=== PATIENT | male | born 1970 | race Asian ===

== ENCOUNTER 2017-12-24 15:55 | Emergency (ER) | payer OTHER ==
[2017-12-24 16:32] VITALS: BP 143/108; PULSE 72; TEMP 98.8; BMI 23.7
--- NOTE | 2017-12-24 16:39 | PDOC ---
History of Present Illness <Nadir Trevino - Last Filed: 12/24/17 19:20> - General History Source: Patient Exam Limitations: No Limitations <Ghassan Chan - Last Filed: 12/24/17 19:51> - General Chief Complaint: Chest Pain Stated Complaint: LEFT CHEST PAIN X 1 DAY AGO Time Seen by Provider: 12/24/17 16:00 - History of Present Illness Initial Comments: 12/24/17 19:46 The patient is a 47 year old male, with a significant past medical history of hyperlipidemia, who presents to the emergency department with chest pain since 07:00 this morning. The patient reports his pain began in the left shoulder after shoveling snow Wednesday night. Patient reports taking Aleeve for his symptoms with relief. Yesterday patient reports his left shoulder pain return along with scapular pain. Today, he reports he developed left sided chest pain. He describes his chest pain as a pitching sensation at the left nipple, nonradiating in nature. Patient states his symptoms come every 45 minutes and last 1-2 seconds. He rates his pain a 6/10. Patient reports associated belching sensation, which relieves his pain. He denies any associated diaphoresis, palpitations, or lower extremity edema.There is no worsening of the symptoms with exertion. Today, patient reports visiting his PCP, where he had an ECG done , which was negative. Patient denies any recent fever, chills, cough, sore throat. He denies any focal weakness, fatigue, numbness, tingling, or neck pain. He denies any abdominal pain, nausea, or vomiting. He denies any recent travel or sick contacts. Allergies: NKDA Past Surgical History: Lymph node removal. Social History: Former smoker. No ETOH or recreational drug use PCP: Dr. Tam (Ghassan Chan) Past History - Past Medical History COPD: No Hypercholesterolemia: Yes - Suicide/Smoking/Psychosocial Hx Smoking History: Former smoker Have you smoked in the past 12 months: No If you are a former smoker, when did you quit?: 2003 Information on smoking cessation initiated: No Hx Alcohol Use: Yes (RARE) Drug/Substance Use Hx: No Substance Use Type: None <Nadir Trevino - Last Filed: 12/24/17 19:20> <Ghassan Chan - Last Filed: 12/24/17 19:51> - Past Medical History Allergies/Adverse Reactions: Allergies Allergy/AdvReac Type Severity Reaction Status Date / Time No Known Allergies Allergy Verified 12/24/17 16:11 Home Medications: Ambulatory Orders Animas-3/Dha/Epa/Fish Oil [Fish Oil 500 mg Softgel] 1 each PO DAILY 12/24/17 Pravastatin Sodium [Pravachol (Nf)] 20 mg PO HS 12/24/17 Review of Systems <Nadri Trevino - Last Filed: 12/24/17 19:20> - Review of Systems Able to Perform ROS?: Yes <Ghassan Cahn - Last Filed: 12/24/17 19:51> - Review of Systems Comments:: 12/24/17 19:50 CONSTITUTIONAL: No reported: Fever, Chills, Diaphoresis, Generalized Weakness, Malaise, Loss of Appetite HEENT: No reported: Rhinorrhea, Nasal Congestion, Throat Pain, Throat Swelling, Difficulty Swallowing, Mouth Swelling, Ear Pain, Eye Pain, Visual Changes CARDIOVASCULAR: Reported: left sided chest pain No reported: Syncope, Palpitations, Irregular Heart Rate, Lightheadedness, Peripheral Edema RESPIRATORY: No reported: Cough, Shortness of Breath, SOB with Exertion, Orthopnea, Wheezing , Stridor, Hemoptysis GASTROINTESTINAL: Reported belching No reported: Abdominal pain, Abdominal Distension, Nausea, Vomiting, Diarrhea, Constipation, Melena, Hematochezia MUSCULOSKELETAL: Reported: left shoulder/scapular pain No reported: Joint Swelling, Neck Pain SKIN: No reported: Rash, Itching, Pallor NEUROLOGIC: No reported: Headache, Focal Weakness, Paresthesias, Vertigo, Lightheadedness, Unsteady Gait, Seizure, Mental Status Changes, Incontinence (Ghassan Chan) *Physical Exam <Nadir Trevino - Last Filed: 12/24/17 19:20> <Ghassan Chan - Last Filed: 12/24/17 19:51> - Vital Signs Last Vital Signs Temp Pulse Resp BP Pulse Ox 98.8 F 72 15 143/108 99 12/24/17 15:57 12/24/17 15:57 12/24/17 15:57 12/24/17 15:57 12/24/17 15:57 - Physical Exam Comments: 12/24/17 19:51 GENERAL: The patient is awake, alert, and fully oriented, Nontoxic - in no acute distress. HEAD: Normocephalic, atraumatic. EYES: extraocular movements intact, sclera anicteric, conjunctiva clear. ENT: Normal voice, Moist mucous membranes. NECK: Normal range of motion, supple LUNGS: Breath sounds equal, clear to auscultation bilaterally. No wheezes, no rhonchi, no rales. HEART: Regular rate and rhythm, without murmur, rub or gallop. No reproducible chest wall tenderness ABDOMEN: Soft, nontender No guarding, no rebound.No CVA tenderness BACK: Mild tenderness in the left cervical/paraspinal, EXTREMITIES: Normal range of motion, no edema. No clubbing or cyanosis. No cords , erythema, or tenderness. NEUROLOGICAL: No facial asymmetry, Normal speech, PSYCH: Normal mood, normal affect. SKIN: Warm, Dry, normal turgor. No rash (Ghassan Chan) Heart Score/ECG Review <Nadir Trevino - Last Filed: 12/24/17 19:20> <Ghassan Chan - Last Filed: 12/24/17 19:51> - ECG Impressions Comment:: 12/24/17 17:31 Twelve-lead EKG was performed and reviewed by me. There is normal sinus rhythm with a normal rate. Rate of 73 The axis is normal. The intervals are normal. There is normal R wave progression There are no ST or T wave abnormalities. Impression: Normal twelve-lead EKG (Nadir Trevino) ED Treatment Course - LABORATORY CBC & Chemistry Diagram: 12/24/17 17:40 12/24/17 17:40 <Nadir Trevino - Last Filed: 12/24/17 19:20> - LABORATORY CBC & Chemistry Diagram: 12/24/17 17:40 12/24/17 17:40 <Ghassan Chan - Last Filed: 12/24/17 19:51> - ADDITIONAL ORDERS Additional order review: Laboratory Results 12/24/17 12/24/17 17:40 17:40 Sodium 134 L Potassium 4.0 Chloride 101 Carbon Dioxide 24 Anion Gap 9 BUN 15 Creatinine 1.1 Creat Clearance w eGFR > 60 Random Glucose 99 Calcium 10.0 Total Bilirubin 1.2 H AST 33 ALT 51 H Alkaline Phosphatase 76 Creatine Kinase 622 H Creatine Kinase Index 0.6 CK-MB (CK-2) 3.9 Troponin I < 0.03 Total Protein 8.1 Albumin 5.2 H 12/24/17 17:40 RBC 6.00 H MCV 80.5 MCHC 34.4 RDW 12.3 MPV 8.7 Neutrophils % 68.3 Lymphocytes % 26.0 Monocytes % 4.4 Eosinophils % 0.4 Basophils % 0.9 - Medications Given in the ED: ED Medications Discontinued Medications Generic Name Dose Route Start Last Admin Trade Name Keiko PRN Reason Stop Dose Admin Aspirin 162 mg 12/24/17 17:24 12/24/17 17:30 Asa - PO 12/24/17 17:25 162 mg ONCE ONE Administration Medical Decision Making <Nadir Trevino - Last Filed: 12/24/17 19:20> <Ghassan Chan - Last Filed: 12/24/17 19:51> - Medical Decision Making 12/24/17 16:38 47y M presents wiht L sided chest pain. Pt was shoveling he was asypmtmoatic on wednesday, when he went inside he had some L sided shoulder pain, imporved with 2 alleve. Today, he enodrsesd some L sided shoulder/capular pain and a pinching pain in the l niple. thasting 1-2 seconds intermittent since approx 7am highly atypical of acs ?radiculopathy will ck ekg and sceening trop 12/24/17 19:16 The patient's blood work was reviewed the patient's CK slightly elevated 600, troponin is negative 1 CK-MB is negative CK index is negative. I suspect that the patient's elevated CK is likely secondary to his shoveling 2 days ago but in light of his chest pain we'll obtain a second troponin and if it is negative will discharge patient follow up with his primary care doctor and cardiology for further workup 12/24/17 19:20 will obtain second trop at 9pm (4 hrs after 1st trop) rachel sign pt out to dr. Dickson to fu with results (Nadir Trevino) *DC/Admit/Observation/Transfer <Nadir Trevino - Last Filed: 12/24/17 19:20> <Ghassan Chan - Last Filed: 12/24/17 19:51> - Discharge Dispostion Condition at time of disposition: Good - Referrals Referrals: Isaiah Tam MD [Primary Care Provider] - - Patient Instructions - Post Discharge Activity - Attestations Scribe Attestion: 12/24/17 19:51 Documentation prepared by Ghassan Chan, acting as medical sales consultant for Nadir Trevino MD. (Ghassan Chan)
[2017-12-24] MEDS ORDERED: ASPIRIN 81 MG CHEWABLE TABLETS PO ONE (17:24)
[2017-12-24] MEDS ORDERED: ASPIRIN 81 MG CHEWABLE TABLETS ONE (17:32)
[2017-12-24 17:59] LABS: BASO % 0.9 % (0-2.0); EOS % 0.4 % (0-4.5); HEMATOCRIT 48.3 % (35.4-49); HEMOGLOBIN 16.6 GM/dl (11.7-16.9); MCH 27.7 pg (25.7-33.7); MCHC 34.4 g/dl (32.0-35.9); MEAN CELL VOLUME 80.5 fl (80-96); MEAN PLT VOLUME 8.7 fl (7.5-11.1); MONO % 4.4 % (3.8-10.2); NEUT % 68.3 % (42.8-82.8); PLATELET COUNT 318 K/MM3 (134-434); RDW 12.3 % (11.9-15.9)
[2017-12-24 18:11] LABS: ALBUMIN 5.2 g/dl (3.5-5.0); ALK PHOS 76 U/L (32-92); ANION GAP 9 (8-16); BILIRUBIN,TOTAL 1.2 mg/dl (0.2-1.0); BLOOD UREA NITROGEN 15 mg/dl (7-18); CHLORIDE 101 mmol/L (98-107); CO2 24 mmol/L (22-28); CREATININE 1.1 mg/dl (0.6-1.3); GLUCOSE,RANDOM 99 mg/dl (74-106); SGOT/AST 33 U/L (10-42); SGPT/ALT 51 U/L (10-40); SODIUM 134 mmol/L (136-145); TOT PROT 8.1 g/dl (6.4-8.3)
--- NOTE | 2017-12-24 21:17 | PDOC ---
*Physical Exam - Vital Signs Last Vital Signs Temp Pulse Resp BP Pulse Ox 98.8 F 72 15 143/108 99 12/24/17 15:57 12/24/17 15:57 12/24/17 15:57 12/24/17 15:57 12/24/17 15:57 ED Treatment Course - LABORATORY CBC & Chemistry Diagram: 12/24/17 17:40 12/24/17 17:40 - ADDITIONAL ORDERS Additional order review: Laboratory Results 12/24/17 12/24/17 17:40 17:40 Sodium 134 L Potassium 4.0 Chloride 101 Carbon Dioxide 24 Anion Gap 9 BUN 15 Creatinine 1.1 Creat Clearance w eGFR > 60 Random Glucose 99 Calcium 10.0 Total Bilirubin 1.2 H AST 33 ALT 51 H Alkaline Phosphatase 76 Creatine Kinase 622 H Creatine Kinase Index 0.6 CK-MB (CK-2) 3.9 Troponin I < 0.03 Total Protein 8.1 Albumin 5.2 H 12/24/17 17:40 RBC 6.00 H MCV 80.5 MCHC 34.4 RDW 12.3 MPV 8.7 Neutrophils % 68.3 Lymphocytes % 26.0 Monocytes % 4.4 Eosinophils % 0.4 Basophils % 0.9 - Medications Given in the ED: ED Medications Discontinued Medications Generic Name Dose Route Start Last Admin Trade Name Freq PRN Reason Stop Dose Admin Aspirin 162 mg 12/24/17 17:24 12/24/17 17:30 Asa - PO 12/24/17 17:25 162 mg ONCE ONE Administration Medical Decision Making - Medical Decision Making Care of this patient received from . Second troponin was also negative. Patient discharged with instructions to return to the emergency room if he has persistent severe chest pain, shortness of breath, palpitations. Otherwise, he should follow-up with Dr. Tam within the next 5 days *DC/Admit/Observation/Transfer Diagnosis at time of Disposition: Atypical chest pain - Discharge Dispostion Disposition: HOME Condition at time of disposition: Stable - Referrals Referrals: Isaiah Tam MD [Primary Care Provider] - - Patient Instructions Printed Discharge Instructions: DI for Atypical Chest Pain Additional Instructions: Return to ER if you have persistent severe chest pain or experience shortness of breath/irregular heartbeat Follow-up with Dr. Tam within the next 5 days - Post Discharge Activity
--- NOTE | 2017-12-26 20:47 | EKG ---
Test Reason : Blood Pressure : / mmHG Vent. Rate : 073 BPM Atrial Rate : 073 BPM P-R Int : 150 ms QRS Dur : 074 ms QT Int : 362 ms P-R-T Axes : 057 048 041 degrees QTc Int : 398 ms NORMAL SINUS RHYTHM MINIMAL VOLTAGE CRITERIA FOR LVH, MAY BE NORMAL VARIANT BORDERLINE ECG NO PREVIOUS ECGS AVAILABLE Confirmed by LENNIE YOUNG MD ([id number]) on 12/26/2017 8:47:02 PM Referred By: MD DEAN Confirmed By:LENNIE YOUNG MD
== END 2017-12-24 22:13 | disposition home or self-care (01) ==
LOC: FER 15:55
DX: R07.89 Other chest pain (principal); E78.5 Hyperlipidemia, unspecified; Z87.891 Personal history of nicotine dependence
CPT/HCPCS: 36415; 80053; 82550; 82553; 84484; 85025; 93005; 99283-25

== ENCOUNTER 2023-12-09 08:04 | Emergency (ER) | payer OTHER ==
[2023-12-09] MEDS ORDERED: KETOROLAC TROMETHAMINE 15 MG/ML VIAL ONE (08:39)
[2023-12-09] MEDS: KETOROLAC TROMETHAMINE 15 MG/ML VIAL IVPUSH ONE (08:49)
[2023-12-09 09:08] LABS: HEMATOCRIT 46.2 % (35.4-49); HEMOGLOBIN 16.5 G/dL (11.7-16.9); MCH 29.5 pg (25.7-33.7); MCHC 35.7 g/dl (32.0-35.9); MEAN CELL VOLUME 82.7 fl (80-96); MEAN PLT VOLUME 9.5 fl (7.5-11.1); PLATELET COUNT 244.9 10^3/uL (134-434); RBC 5.59 10^6/uL (4.00-5.60); WHITE BLOOD COUNT 6.6 10^3/uL (4.0-10.8)
[2023-12-09 09:22] LABS: PLATELET ESTIMATE ADEQUATE
[2023-12-09] MEDS: SODIUM CHLORIDE 0.9% 500 ML INFUS.BAG IV ONE (09:28)
[2023-12-09 09:56] VITALS: BP 170/111; PULSE 104; RESP 16; TEMP 98.5; BMI 25.1
[2023-12-09 10:41] LABS: CHLORIDE 106 mmol/L (98-107); POTASSIUM 3.9 mmol/L (3.5-5.1); SODIUM 141 mmol/L (136-145)
[2023-12-09 10:43] LABS: ALBUMIN 4.5 g/dl (3.4-5.0); ANION GAP 6 mmol/L (4-13); BLOOD UREA NITROGEN 11.9 mg/dL (7-18); CALCIUM 10.1 mg/dL (8.5-10.1); CO2 30 mmol/L (21-32); GLUCOSE,RANDOM 133 mg/dL (74-106)
[2023-12-09 10:46] LABS: CREATININE 1.2 mg/dL (0.55-1.3); SGOT/AST 17 U/L (15-37); SGPT/ALT 35 U/L (13-61)
[2023-12-09 10:48] LABS: BILIRUBIN,TOTAL 0.9 mg/dL (0.2-1); TOT PROT 7.8 g/dl (6.4-8.2)
[2023-12-09 10:49] LABS: ALK PHOS 85 U/L (45-117)
== END 2023-12-09 11:59 | disposition home or self-care (01) ==
LOC: FER 08:04
PROC: 3E033NZ Introduction of Analgesics, Hypnotics, Sedatives into Peripheral Vein, Percutaneous Approach (ICD-10-PCS; principal; 2023-12-09)
DX: R10.31 Right lower quadrant pain (principal); R10.2 Pelvic and perineal pain; N48.89 Other specified disorders of penis; N30.90 Cystitis, unspecified without hematuria; X50.0XXA Overexertion from strenuous movement or load, initial encounter
CPT/HCPCS: 36415; 74177-TC; 80053; 81003; 81015; 85027; 86140; 87086; 99285-25; Q9967